=== PATIENT | female | born 1945 | race Caucasian/White ===

== ENCOUNTER 2016-04-12 11:01 | Emergency (ER) | payer OTHER ==
[~2016-04-12] VITALS: Ht 160 cm; Wt 84.4 kg
[2016-04-12 11:36] LABS: EOSINOPHIL (%) 0.2 % (0-5); HEMATOCRIT 39.3 % (36.0-46.0); IMMATURE GRANULOCYTE (%) 0.6 % (0.0-0.7); IMMATURE GRANULOCYTE COUNT 0.3 K/uL; LYMPHOCYTE COUNT 0.8 K/uL (1.0-2.8); MCH 31.1 PG (29.0-34.0); MCHC 33.1 G/DL (30.0-36.0); MEAN PLAT.VOLUME 8.3 uM^3 (9.5-12.4); MONOCYTE (%) 6.8 % (3-12); MONOCYTE COUNT 0.3 K/uL (0-0.8); NEUTROPHIL (%) 75.8 % (45-76); NEUTROPHIL COUNT 3.7 K/uL (1.8-6.4); PLATELET COUNT 318 K/uL (156-360); RBC DIS.WIDTH-CV 13.2 % (11.8-14.6); RBC DIS.WIDTH-SD 44.1 % (39-53); RED BLOOD COUNT 4.18 M/uL (3.80-5.20); WHITE BLOOD COUNT 4.9 K/uL (4.1-10.2)
[2016-04-12 11:45] LABS: CHLORIDE 105 mEq/L (99-109); POTASSIUM 3.9 mEq/L (3.7-5.4); SODIUM 138 mEq/L (136-147)
[2016-04-12 11:46] LABS: GLUCOSE 132 mg/dL (70-99)
[2016-04-12 11:48] LABS: ANION GAP 10 MEQ/L (2-14)
[2016-04-12 11:50] LABS: GFR ESTIMATE (CALCULATED) > 59 mL/min/
[2016-04-12 11:51] LABS: UREA NITROGEN (BUN) 12 mg/dL (9-23)
[2016-04-12 14:34] VITALS: BP 129/71
== END 2016-04-12 14:35 | disposition home or self-care (01) ==
LOC: EME 11:01
PROVIDERS: Emergency Medicine
DX: R51 Headache (principal); I10 Essential (primary) hypertension; Z87.891 Personal history of nicotine dependence; Z91.013 Allergy to seafood; Z91.041 Radiographic dye allergy status; E78.5 Hyperlipidemia, unspecified
CPT/HCPCS: 70450; 80048; 85025; 99281; 99284; J1885; J2765

== ENCOUNTER 2017-05-16 13:42 | Observation (INO) | payer OTHER ==
[~2017-05-16] VITALS: Ht 160 cm; Wt 73.0 kg
[2017-05-16 14:11] LABS: BASOPHIL (%) 0.3 % (0-1); EOSINOPHIL (%) 0.7 % (0-5); HEMATOCRIT 42.4 % (36.0-46.0); HEMOGLOBIN 14.1 G/DL (11.9-15.5); IMMATURE GRANULOCYTE (%) 0.2 % (0.0-0.7); LYMPHOCYTE (%) 27.2 % (15-42); LYMPHOCYTE COUNT 1.6 K/uL (1.0-2.8); MCH 30.8 PG (29.0-34.0); MCHC 33.3 G/DL (30.0-36.0); MCV 92.6 FL (83-99); MONOCYTE (%) 9.7 % (3-12); MONOCYTE COUNT 0.6 K/uL (0-0.8); NEUTROPHIL (%) 61.9 % (45-76); NEUTROPHIL COUNT 3.6 K/uL (1.8-6.4); PLATELET COUNT 275 K/uL (156-360); RBC DIS.WIDTH-CV 13.7 % (11.8-14.6); RBC DIS.WIDTH-SD 46.5 % (39-53); RED BLOOD COUNT 4.58 M/uL (3.80-5.20); WHITE BLOOD COUNT 5.8 K/uL (4.1-10.2)
[2017-05-16 14:19] LABS: CHLORIDE 105 mEq/L (99-109); POTASSIUM 4.2 mEq/L (3.7-5.4); SODIUM 139 mEq/L (136-147)
[2017-05-16 14:21] LABS: GLUCOSE 95 mg/dL (70-99)
[2017-05-16 14:25] LABS: CREATININE 0.8 mg/dL (0.6-1.3); GFR ESTIMATE (CALCULATED) > 59 mL/min/
[2017-05-16 14:26] LABS: UREA NITROGEN (BUN) 13 mg/dL (9-23)
[2017-05-16 16:45] LABS: APPEARANCE CLEAR ((CLEAR)); BILIRUBIN NEGATIVE; BLOOD NEGATIVE; COLOR YELLOW ((YELLOW)); GLUCOSE (STRIP) NEGATIVE; KETONES 5; LEUKOCYTES SMALL; NITRITE NEGATIVE; PROTEIN (STRIP) NEGATIVE; SPECIFIC GRAVITY 1.014 (1.000-1.030); UROBILINOGEN 0.2 MG/DL (0.2-1.0)
[2017-05-16 17:03] LABS: BACTERIA RARE /HPF; EPITHELIAL CELLS RARE /HPF; HYALINE CASTS 0-5 /LPF; MUCUS TRACE /LPF; RED BLOOD CELLS 0-5 /HPF (0-5); UCUL ADDED? YES
[2017-05-16] MEDS ORDERED: OXYCONTIN20 MG PO (19:00)
[2017-05-16] MEDS ORDERED: OXYCODONE HCL10 MG PO (19:00)
[2017-05-16] MEDS ORDERED: PAZEO2.5 ML BOTH EYES (19:01)
[2017-05-16] MEDS ORDERED: FLONASE16 G1 BOTH NARES (19:01)
[2017-05-16] MEDS ORDERED: LIPITOR10 MG PO (19:03)
[2017-05-16] MEDS ORDERED: CELEBREX200 MG PO (19:09)
[2017-05-16] MEDS ORDERED: ZYRTEC10 M3 PO (19:09)
[2017-05-16] MEDS ORDERED: LEVO-T100 MCG PO (19:10)
[2017-05-16] MEDS ORDERED: RESTASIS MULTI5.5 ML BOTH EYES (19:11)
[2017-05-16] MEDS ORDERED: PROBIOTIC1 EAC2 PO (19:11)
[2017-05-16 20:47] VITALS: BP 128/69
[2017-05-17 00:14] VITALS: BP 118/58
[2017-05-17 07:36] VITALS: BP 117/59
[2017-05-17] MEDS ORDERED: CYCLOBENZAPRINE10 MG PO (10:09)
== END 2017-05-17 11:57 | disposition home or self-care (01) ==
LOC: EME 13:42 → EDOF 18:24 → ENRESERV 18:30 → 5WEST 20:31 → ENPENDDIS 05-17 → 5WEST 05-17 11:57
PROVIDERS: Emergency Medicine
DX: M54.9 Dorsalgia, unspecified (principal); G89.29 Other chronic pain; Z79.891 Long term (current) use of opiate analgesic; I10 Essential (primary) hypertension; E78.5 Hyperlipidemia, unspecified; E03.9 Hypothyroidism, unspecified; Z87.891 Personal history of nicotine dependence; Z91.041 Radiographic dye allergy status; Z91.013 Allergy to seafood
CPT/HCPCS: 72148; 73502; 80048; 81003; 85025; 87086; 99281; 99285; G0378; G8978 GP CJ; G8979 GP CH; G8987 GO CI; G8988 GO CH; J1100; J1650; J1885; J2060; J2270